=== PATIENT | male | born 1950 | race Caucasian/White ===

== ENCOUNTER 2018-12-27 16:08 | Inpatient (IN) ==
[2018-12-27] MEDS ORDERED: Aspirin 81 MG TAB.CHEW PO ONE (16:27)
--- NOTE | 2018-12-27 16:35 | Emergency Department Note ---
Disposition Clinical Impression: Weakness Chest pain Qualifiers: Chest pain type: unspecified Qualified Code(s): R07.9 - Chest pain, unspecified Headache Qualifiers: Headache type: unspecified Headache chronicity pattern: unspecified pattern Intractability: not intractable Qualified Code(s): R51 - Headache Disposition: Admitted As Inpatient Condition: Fair Time of Disposition: 22:07 Chest Pain HPI - General Chief Complaint: ED Chest Pain Stated Complaint: Chest Pain Time Seen by Provider: 12/27/18 16:26 Source: patient, family Mode of arrival: ambulatory Limitations: no limitations Vital Signs Reviewed: Yes Nursing Notes Reviewed: Yes - History of Present Illness HPI Narrative: 68-year-old man past medical history of stent placement in 2014, presenting for 2 day history of lightheadedness, dizziness, chest discomfort. Patient states he has had mild confusion and generalized malaise. Patient states that the symptoms are precisely the symptoms that he encountered prior to his previous stent placement. Severity scale (1-10): 5 Quality: tightness Pain Radiation: none - Related Data Home Medications Medication Instructions Recorded Confirmed Aspirin 81 mg PO DAILY 03/13/17 12/27/18 Clopidogrel Bisulfate [Plavix] 75 mg PO DAILY 03/13/17 12/27/18 Cyclobenzaprine HCl 10 mg PO DAILY 03/13/17 12/27/18 Gabapentin [Neurontin] 300 mg PO TID 03/13/17 12/27/18 Lisinopril [Zestril] 10 mg PO DAILY 03/13/17 12/27/18 Metoprolol Tartrate [Lopressor] 25 mg PO BID 03/13/17 12/27/18 Multivitamin [Multi-Day Vitamins] 1 each PO DAILY 03/13/17 12/27/18 OxyCODONE Immed Rel [Roxicodone 10 10 mg PO TID PRN 03/13/17 12/27/18 MG] Pioglitazone [Actos] 45 mg PO DAILY 03/13/17 12/27/18 Sildenafil Citrate [Viagra] 100 mg PO DAILY PRN 03/13/17 12/27/18 Tamsulosin HCl [Flomax] 0.4 mg PO DAILY 03/13/17 12/27/18 Zolpidem Tartrate 10 mg PO HS 03/13/17 12/27/18 Previous Rx's Medication Instructions Recorded Vitamin E (Dl,Tocopheryl Acet) 400 unit PO BID #60 cap 03/13/17 [Vitamin E] Venlafaxine XR (24 HR) [Effexor XR] 150 mg PO DAILY 30 Days #60 04/26/18 cap.er.24h Allergies Allergy/AdvReac Type Severity Reaction Status Date / Time No Known Allergies Allergy Verified 10/26/18 16:05 Review of Systems: *See History of Present Illness for more detail Constitutional: Denies: fever, chills Cardiovascular: Admits to 11/23 chest tightness without radiation Respiratory: Denies: dyspnea, cough, hemoptysis Gastrointestinal: Denies: abdominal pain, nausea, vomiting, diarrhea, constipation, hematemesis, melena, hematochezia Genitourinary: Denies: hematuria Musculoskeletal: Denies: back pain, neck pain Neurological: Denies: headache, weakness, lightheadedness/dizziness, numbness, paresthesias, difficulty with ambulation. Endocrine: Admits: fatigue All systems ED: reviewed and negative except as stated. Review of Systems: As Per HPI Chest Pain PMH - Past Medical History Medical history: Reports: diabetes, hyperlipidemia, hypertension, myocardial infarction - Social History Smoking Status: Former smoker Alcohol use: Reports: occasionally Drug use: Reports: none Physical Exam Constitutional: No acute distress, [id number], engaged to conversation, speech is fluid, answers questions appropriately Neuro: GCS 15, no overt focal neurological deficits Head: Atraumatic, normocephalic Eyes: Pupils equal, round and reactive to light, no scleral icterus, no conjunctival injection Neck: Trachea midline without deviation. Anterior neck is supple without swe lling. *Chest: Symmetric chest wall rise *Heart: Cardiac rhythm and rate are regular with S1 and S2 , no S3 or S4 appreciated, no murmurs, gallops, rubs, or clicks. *Lungs: Lungs are clear to auscultation bilaterally, without accessory muscle use or prolonged expiratory phase. No wheezes, rhonchi or stridor appreciated. Abdomen: Abdomen is flat, soft to palpation, normal bowel sounds. No abdominal bruit auscultated. Non-distended, non-rigid, no organomegaly, no ascites appreciated. No pulsatile mass, no tenderness or guarding to palpation in all four quadrants, no rebound Extremities: Normal capillary refill without evidence of pedal edema, joint swelling or erythema. Pulses/motor intact in all 4 extremities. Psychiatric exam: Patient displays a normal affect and mood for the environment. No overt signs of hallucination. Integumentary: warm, dry, intact, normal color. No rash, cyanosis, diaphoresis, erythema, or pallor - General Limitations: no limitations General appearance: alert, in no apparent distress Course Vital Signs Temperature 97.9 F 12/27/18 16:18 Pulse Rate 93 12/27/18 16:18 Respiratory Rate 16 12/27/18 16:18 Blood Pressure 157/89 12/27/18 16:18 O2 Sat by Pulse Oximetry 97 12/27/18 16:18 Temperature 97.8 F 12/28/18 02:49 Pulse Rate 67 12/28/18 02:49 Respiratory Rate 14 12/28/18 02:49 Blood Pressure 113/67 12/28/18 02:49 O2 Sat by Pulse Oximetry 99 12/28/18 02:49 Oxygen Delivery Oxygen Delivery Room Air Chest Pain - MDM Narrative Medical decision making narrative: Patient heart score is 5 Patient EKG, imaging and laboratory analysis negative for acute pathology. Patient doing well with pain management here in ED. Patient admitted to hospital medicine service for further evaluation and ACS rule out Patient family at bedside verbalized understanding and agreement with this plan. Patient hemodynamically stable time of admission - Lab Data Lab results reviewed: Yes I reviewed the patient's lab results. Result diagrams: 12/28/18 06:28 12/28/18 06:28 Lab Results 12/27/18 12/27/18 12/27/18 Range/Units 16:46 16:46 16:46 WBC 3.2 L (4.3-11.1) K/mcL RBC 4.22 (4.19-5.50) M/mcL Hgb 13.3 (12.9-16.9) g/dL Hct 40.9 (37.5-50.1) % MCV 96.9 (83.0-100.0) fL MCH 31.5 (28.0-33.3) pg MCHC 32.5 (31.6-35.5) g/dL RDW 12.8 (11.5-14.5) % Plt Count 250 (140-400) K/mcL MPV 9.7 (9.4-12.4) fL Immature Gran % 0.3 (0-4) % Seg Neutrophils % 49.9 % Lymphocytes % 35.0 % Monocytes % 10.2 % Eosinophils % 3.7 % Basophils % 0.9 % Neutrophils # 1.6 (1.6-8.9) K/mcL Lymphocytes # 1.1 (0.6-4.6) K/mcL Monocytes # 0.3 (0.0-1.3) K/mcL Eosinophils # 0.1 (0.0-0.6) K/mcL Basophils # 0.0 (0.0-0.2) K/mcL PT 11.0 (9.4-12.1) Seconds INR 1.0 APTT 30.4 (26.0-36.0) Seconds Sodium (136-145) mEq/L Potassium (3.5-5.1) mEq/L Chloride (98-107) mEq/L Carbon Dioxide (23-29) mEq/L BUN (8-23) mg/dL Creatinine (0.70-1.30) mg/dL Est GFR ( Amer) (> 60) Est GFR (Non-Af Amer) (> 60) BUN/Creatinine Ratio (6-26) Glucose (70-105) mg/dL Calculated Osmolality (280-300) Calcium (8.6-10.3) mg/dL Troponin I (< 0.04) ng/mL B-Natriuretic Peptide 50 (Less than 100) pg/mL 12/27/18 Range/Units 16:46 WBC (4.3-11.1) K/mcL RBC (4.19-5.50) M/mcL Hgb (12.9-16.9) g/dL Hct (37.5-50.1) % MCV (83.0-100.0) fL MCH (28.0-33.3) pg MCHC (31.6-35.5) g/dL RDW (11.5-14.5) % Plt Count (140-400) K/mcL MPV (9.4-12.4) fL Immature Gran % (0-4) % Seg Neutrophils % % Lymphocytes % % Monocytes % % Eosinophils % % Basophils % % Neutrophils # (1.6-8.9) K/mcL Lymphocytes # (0.6-4.6) K/mcL Monocytes # (0.0-1.3) K/mcL Eosinophils # (0.0-0.6) K/mcL Basophils # (0.0-0.2) K/mcL PT (9.4-12.1) Seconds INR APTT (26.0-36.0) Seconds Sodium 140 (136-145) mEq/L Potassium 4.2 (3.5-5.1) mEq/L Chloride 106 (98-107) mEq/L Carbon Dioxide 27 (23-29) mEq/L BUN 16 (8-23) mg/dL Creatinine 0.81 (0.70-1.30) mg/dL Est GFR ( Amer) > 60 (> 60) Est GFR (Non-Af Amer) > 60 (> 60) BUN/Creatinine Ratio 20 (6-26) Glucose 139 H (70-105) mg/dL Calculated Osmolality 293 (280-300) Calcium 9.8 (8.6-10.3) mg/dL Troponin I < 0.03 (< 0.04) ng/mL B-Natriuretic Peptide (Less than 100) pg/mL - Radiology Data Radiology results reviewed: Yes I reviewed the patient's radiology results. Chest X-Ray 12/27/18 16:27 IMPRESSION: No acute pulmonary process. D/ / Trevor Shafer MD / Trevor Shafer MD Interpreting Provider: Trevor Shafer MD Dissection 12/27/18 16:38 IMPRESSION: No evidence of dissection or acute aortic injury. Minimal atelectasis versus scar involving both lower lungs. No acute intra-abdominal/intrapelvic abnormality. D/ / Ashlyn Hunter MD / Ashlyn Hunter MD Interpreting Provider: Ashlyn Hunter MD - EKG Data EKG attestation: Yes I reviewed and interpreted this EKG. EKG results narrative: Patient's EKG shows a sinus rhythm with right bundle branch block and left anterior fascicular block with a heart of 81 bpm, [place] interval 197, QRS duration 139, QT/QTc intervals 407/473 respectively, there are no significant ST segment elevations, depressions, pathologic Q's, abnormal T-wave inversions, or any signs of acute ischemic change. This EKG performed today is generally consistent prior EKG performed on 12/19/2011. Repeat EKG shows sinus rhythm with right bundle branch block and left anterior fascicular block heart rate 75 bpm, KY interval 179 ms, QR islam 132 ms, QT/QTc intervals 40/456 ms respectively. There is dullness acute signs of ischemic change. This EKG is generally consistent with priors. Heart Score - Score History: Moderately Suspicious EKG: Normal Age: Greater than 65 Risk Factors: Equal/Greater than 3 risk factor or history of atherosclerotic disease Troponin: Less than normal limit HEART Score Total: 5 Attestation Statement - Attestation Attestation: I, Harinder Monteiro DO, examined this patient [id number] and my medical decision-making was reviewed with Dr. Flash Lyon, Resident Physician. I agree with the documented findings, disposition and treatment plan as described except to the extent set forth below. I personally supervised and was present for the marc/critical portions of the procedures completed by the resident documented below. Please see my progress notes for details.
[2018-12-27] MEDS ORDERED: Isovue-370 500 ML BOTTLE IVP ONE (16:38)
[2018-12-27 16:58] LABS: Basophils % 0.9 %; Eosinophils # 0.1 K/mcL (0.0-0.6); Eosinophils % 3.7 %; Hematocrit 40.9 % (37.5-50.1); Hemoglobin 13.3 g/dL (12.9-16.9); Immature Granulocytes % 0.3 % (0-4); Lymphocytes # 1.1 K/mcL (0.6-4.6); Mean Corpuscular HGB Conc 32.5 g/dL (31.6-35.5); Mean Corpuscular Hemoglobin 31.5 pg (28.0-33.3); Mean Corpuscular Volume 96.9 fL (83.0-100.0); Mean Platelet Volume 9.7 fL (9.4-12.4); Monocytes # 0.3 K/mcL (0.0-1.3); Monocytes % 10.2 %; Neutrophils # 1.6 K/mcL (1.6-8.9); Platelet Count 250 K/mcL (140-400); Red Blood Count 4.22 M/mcL (4.19-5.50); Red Cell Distribution Width 12.8 % (11.5-14.5); Segmented Neutrophils % 49.9 %; White Blood Count 3.2 K/mcL (4.3-11.1)
[2018-12-27 17:11] LABS: Activated Partial Thrombo Time 30.4 Seconds (26.0-36.0)
[2018-12-27 17:18] LABS: BUN/Creatinine Ratio 20 (6-26); Blood Urea Nitrogen 16 mg/dL (8-23); Calcium 9.8 mg/dL (8.6-10.3); Carbon Dioxide 27 mEq/L (23-29); Chloride 106 mEq/L (98-107); Glucose 139 mg/dL (70-105); Osmolality,Calculated 293 (280-300); Potassium 4.2 mEq/L (3.5-5.1); Sodium 140 mEq/L (136-145); eGFR For African Americans > 60 (> 60); eGFR For Non-African Americans > 60 (> 60)
[2018-12-27 17:19] LABS: Troponin I < 0.03 ng/mL (< 0.04)
[2018-12-27] MEDS: Nitroglycerin 0.4 MG TAB.SUBL SL PRN ×3 (17:25→17:35)
[2018-12-27] MEDS ORDERED: *HR* Morphine 2 MG/ML SYRINGE IVP ONE (17:44)
--- NOTE | 2018-12-27 18:13 | Emergency Department Note ---
Disposition Clinical Impression: Weakness Chest pain Qualifiers: Chest pain type: unspecified Qualified Code(s): R07.9 - Chest pain, unspecified Headache Qualifiers: Headache type: unspecified Headache chronicity pattern: unspecified pattern Intractability: not intractable Qualified Code(s): R51 - Headache Disposition: Admitted As Inpatient Condition: Fair Referrals: Carlos Lauren MD [Primary Care Provider] - Forms: ED Satisfaction Letter Time of Disposition: 20:28 General Adult HPI - General Chief complaint: ED Chest Pain Stated complaint: Chest Pain Time Seen by Provider: 12/27/18 16:26 Source: patient, family Limitations: no limitations - History of Present Illness Pain Scale: 5 - Related Data Home Medications Medication Instructions Recorded Confirmed Aspirin 81 mg PO DAILY 03/13/17 10/26/18 Clopidogrel Bisulfate [Plavix] 75 mg PO DAILY 03/13/17 10/26/18 Cyclobenzaprine HCl 10 mg PO DAILY 03/13/17 10/26/18 Gabapentin [Neurontin] 300 mg PO TID 03/13/17 10/26/18 Lisinopril [Zestril] 10 mg PO DAILY 03/13/17 10/26/18 Metoprolol Tartrate [Lopressor] 25 mg PO BID 03/13/17 10/26/18 Multivitamin [Multi-Day Vitamins] 1 each PO DAILY 03/13/17 10/26/18 OxyCODONE Immed Rel [Roxicodone 10 10 mg PO TID PRN 03/13/17 10/26/18 MG] Pioglitazone [Actos] 45 mg PO DAILY 03/13/17 10/26/18 Sildenafil Citrate [Viagra] 100 mg PO DAILY PRN 03/13/17 10/26/18 Tamsulosin HCl [Flomax] 0.4 mg PO DAILY 03/13/17 10/26/18 Zolpidem Tartrate 10 mg PO HS 03/13/17 10/26/18 Previous Rx's Medication Instructions Recorded Vitamin E (Dl,Tocopheryl Acet) 400 unit PO BID #60 cap 03/13/17 [Vitamin E] Venlafaxine XR (24 HR) [Effexor XR] 150 mg PO DAILY 30 Days #60 04/26/18 cap.er.24h Allergies Allergy/AdvReac Type Severity Reaction Status Date / Time No Known Allergies Allergy Verified 10/26/18 16:05 Past Medical History - Past Medical History Medical history: Reports: diabetes, hyperlipidemia, hypertension, myocardial infarction - Social History Smoking Status: Former smoker Smokeless Tobacco Status: No Alcohol use: Reports: occasionally Drug use: Reports: none Physical Exam - General Limitations: no limitations General appearance: alert, in no apparent distress Course Vital Signs Temperature 97.9 F 12/27/18 16:18 Pulse Rate 93 12/27/18 16:18 Respiratory Rate 16 12/27/18 16:18 Blood Pressure 157/89 12/27/18 16:18 O2 Sat by Pulse Oximetry 97 12/27/18 16:18 Temperature 97.9 F 12/27/18 16:18 Pulse Rate 21 12/27/18 19:35 Respiratory Rate 18 12/27/18 19:35 Blood Pressure 123/80 12/27/18 19:35 O2 Sat by Pulse Oximetry 98 12/27/18 19:35 Oxygen Delivery Oxygen Delivery Room Air Medical Decision Making - Lab Data Result diagrams: 12/27/18 16:46 12/27/18 16:46 Lab Results 12/27/18 12/27/18 12/27/18 Range/Units 16:46 16:46 16:46 WBC 3.2 L (4.3-11.1) K/mcL RBC 4.22 (4.19-5.50) M/mcL Hgb 13.3 (12.9-16.9) g/dL Hct 40.9 (37.5-50.1) % MCV 96.9 (83.0-100.0) fL MCH 31.5 (28.0-33.3) pg MCHC 32.5 (31.6-35.5) g/dL RDW 12.8 (11.5-14.5) % Plt Count 250 (140-400) K/mcL MPV 9.7 (9.4-12.4) fL Immature Gran % 0.3 (0-4) % Seg Neutrophils % 49.9 % Lymphocytes % 35.0 % Monocytes % 10.2 % Eosinophils % 3.7 % Basophils % 0.9 % Neutrophils # 1.6 (1.6-8.9) K/mcL Lymphocytes # 1.1 (0.6-4.6) K/mcL Monocytes # 0.3 (0.0-1.3) K/mcL Eosinophils # 0.1 (0.0-0.6) K/mcL Basophils # 0.0 (0.0-0.2) K/mcL PT 11.0 (9.4-12.1) Seconds INR 1.0 APTT 30.4 (26.0-36.0) Seconds Sodium (136-145) mEq/L Potassium (3.5-5.1) mEq/L Chloride (98-107) mEq/L Carbon Dioxide (23-29) mEq/L BUN (8-23) mg/dL Creatinine (0.70-1.30) mg/dL Est GFR ( Amer) (> 60) Est GFR (Non-Af Amer) (> 60) BUN/Creatinine Ratio (6-26) Glucose (70-105) mg/dL Calculated Osmolality (280-300) Calcium (8.6-10.3) mg/dL Troponin I (< 0.04) ng/mL B-Natriuretic Peptide 50 (Less than 100) pg/mL 12/27/18 Range/Units 16:46 WBC (4.3-11.1) K/mcL RBC (4.19-5.50) M/mcL Hgb (12.9-16.9) g/dL Hct (37.5-50.1) % MCV (83.0-100.0) fL MCH (28.0-33.3) pg MCHC (31.6-35.5) g/dL RDW (11.5-14.5) % Plt Count (140-400) K/mcL MPV (9.4-12.4) fL Immature Gran % (0-4) % Seg Neutrophils % % Lymphocytes % % Monocytes % % Eosinophils % % Basophils % % Neutrophils # (1.6-8.9) K/mcL Lymphocytes # (0.6-4.6) K/mcL Monocytes # (0.0-1.3) K/mcL Eosinophils # (0.0-0.6) K/mcL Basophils # (0.0-0.2) K/mcL PT (9.4-12.1) Seconds INR APTT (26.0-36.0) Seconds Sodium 140 (136-145) mEq/L Potassium 4.2 (3.5-5.1) mEq/L Chloride 106 (98-107) mEq/L Carbon Dioxide 27 (23-29) mEq/L BUN 16 (8-23) mg/dL Creatinine 0.81 (0.70-1.30) mg/dL Est GFR ( Amer) > 60 (> 60) Est GFR (Non-Af Amer) > 60 (> 60) BUN/Creatinine Ratio 20 (6-26) Glucose 139 H (70-105) mg/dL Calculated Osmolality 293 (280-300) Calcium 9.8 (8.6-10.3) mg/dL Troponin I < 0.03 (< 0.04) ng/mL B-Natriuretic Peptide (Less than 100) pg/mL Attestation Statement - Attestation Attestation: I, Harinder Monteiro DO, examined this patient [id number] and my medical dec ision-making was reviewed with Dr. Flash Lyon, Resident Physician. I agree with the documented findings, disposition and treatment plan as described except to the extent set forth below. I personally supervised and was present for the marc/critical portions of the procedures completed by the resident documented below. Please see my progress notes for details. 68-year-old male presents emergency room with 3 days worth of tightness to his chest lightheaded sensation and pain that radiates into his back. He denies any falls trauma or injury. Denies any headache or vision change. He has not had any nausea vomiting or diarrhea. Denies any specific shortness of breath. He does have a remote history of similar symptoms in the past when he had actual myocardial related ischemia and damage. Vital signs reviewed and are stable on presentation. Patient is alert he is oriented he is answering questions. He has normal vision on exam. His head is atraumatic. Pupils are equal round reactive. Extraocular muscles are intact. Oropharynx is patent. Trachea is midline. Lungs are clear to auscultation. Heart is regular. Abdomen is soft nontender nondistended with no pulsatile masses or lesions. Extremities otherwise normal with no signs of rash or abrasion or swelling. Patient is describing pain in the anterior chest wall raised his back. Initial EKG does not show any acute findings or changes. Morphology is compared reviewed from previous shows identical similarities. This was reviewed by myself and documented resident physician's note. Patient is concerning for the described symptoms being secondary to cardiac related etiology. Patient also has a history of aortic stenosis is seen as described. Because of the pain radiated into his back and immediate CT angiography the chest abdomen and pelvis were ordered ruling out dissection. Patient will be provided with nitroglycerin aspirin and the pain medication as needed. Disposition will most likely be admission wants a full workup and treatment course have been established. Patient is otherwise stable. See detailed documentation the physical exam, medical intervention, medical decision-making and disposition in the resident physician's note. No critical care applied the patient's treatment course at this time [address] angiography the chest abdomen and pelvis at this time. Patient had still had pain after 3 nitroglycerin were given with no significant relief. Pain medication as been ordered at this point. Repeat EKG was ordered as well and shows no changes. Initial troponin was negative and the patient's had the symptoms for 3 days. Admission process to be established considering the patient's described history and symptoms. We will continue monitor his symptoms are controlled admission process is completed. 2034 Patient feels much better after the second dose of pain medication. His symptoms are not gone but otherwise has had no acute changes. He did not have any response to nitroglycerin. Troponin is negative and EKG was otherwise unremarkable. Patient will be admitted for symptomatic control management. He will monitor closely and determine whether or not he needs further intervention here in the hospital setting. The hospitalist Dr. Espinoza had reviewed the case and no other concerns or issues at this point. Patient will be monitored here closely in the emergency department until the admission process is completed.
[2018-12-27] MEDS ORDERED: *HR* HYDROmorphone (PF) 1 MG/ML SYRINGE IVP ONE (19:12)
[2018-12-27] MEDS ORDERED: Naloxone 0.4 MG/ML INJ IVP PRN (21:06)
--- NOTE | 2018-12-27 21:28 | Internal Med History&Physical ---
Date of Encounter: 12/27/18 Time of Encounter: 20:52 Internal Medicine - H&P: HPI Chief complaint: Chest pain Admitted From: Emergency Dept Plans for Post Hospital Care: Home History of present illness: Mr. Burt is a 68 year old male Patient presented to the emergency room with three-day history of worsening chest pain. 3 days ago patient was out in the yard working on his lawnmower when he began having chest discomfort, nausea and vomiting. He also became progressively weak over the last few days as well. His significant history of OR with stent placement about 13 years ago. He follows with cardiology, Dr. Amor. With his previous OR he waited 2 weeks before coming into the hospital with chest pain. His was at bedside convinced him to come in as been having the pain for 3 days. Chest pain radiates to left arm as well as to his back. indicates that he has not been acting like himself. In the emergency room patient's initial vital signs were with CBC: Notable for white count of 3.2 BMP: Notable for glucose of 139 Initial troponin undetectable BNP 50 Chest x-ray no acute process CT dissection study: No evidence of dissection or acute aortic injury. EKG: Normal sinus rhythm with right bundle branch block QTC of 473. No ST elevations or ischemic change. Patient was given 3 doses of nitroglycerin, morphine as well as Dilaudid. Patient received 324 mg of aspirin. His symptoms improved, and he is admitted to the hospital for further management. Upon my evaluation, patient is resting comfortably in the emergency room bed. He is in no acute distress. He states that he has some mild chest discomfort and his headache worsened after the nitroglycerin. He denies abdominal pain, nausea, vomiting, diarrhea and constipation. He has significant family history of heart attacks, stating his father passed with a heart attack at 52 his grandfather from heart attack while he was in his 30s and his brother passed went from a heart attack at age of 47. Patient has past medical history of prostate cancer not currently undergoing chemotherapy or radiation, diabetes, hypertension and hyperlipidemia as well. He is a full code. Past Med Surg Social Fam HX - Past Medical History Medical history: diabetes, hyperlipidemia, hypertension, myocardial infarction - Past Surgical History Additional surgical history: Neck Surgery - Social History Smoking Status: Former smoker Smokeless Tobacco Status: No Alcohol use: occasionally Drug use: none Internal Medicine - H&P: Meds Aspirin 81 mg PO DAILY 03/13/17 [History] Clopidogrel Bisulfate [Plavix] 75 mg PO DAILY 03/13/17 [History] Cyclobenzaprine HCl 10 mg PO DAILY 03/13/17 [History] Gabapentin [Neurontin] 300 mg PO TID 03/13/17 [History] Lisinopril [Zestril] 10 mg PO DAILY 03/13/17 [History] Metoprolol Tartrate [Lopressor] 25 mg PO BID 03/13/17 [History] Multivitamin [Multi-Day Vitamins] 1 each PO DAILY 03/13/17 [History] OxyCODONE Immed Rel [Roxicodone 10 MG] 10 mg PO TID PRN 03/13/17 [History] Pioglitazone [Actos] 45 mg PO DAILY 03/13/17 [History] Sildenafil Citrate [Viagra] 100 mg PO DAILY PRN 03/13/17 [History] Tamsulosin HCl [Flomax] 0.4 mg PO DAILY 03/13/17 [History] Vitamin E (Dl,Tocopheryl Acet) [Vitamin E] 400 unit PO BID #60 cap 03/13/17 [Rx] Zolpidem Tartrate 10 mg PO HS 03/13/17 [History] Venlafaxine XR (24 HR) [Effexor XR] 150 mg PO DAILY 30 Days #60 cap.er.24h 04/26/18 [Rx] Allergy/AdvReac Type Severity Reaction Status Date / Time No Known Allergies Allergy Verified 10/26/18 16:05 All Systems PM: A 10-system review of systems was performed and is negative for pertinent findings except as documented above in the HPI. - Constitutional Vitals: Temp Pulse Resp BP Pulse Ox 97.9 F 73 15 131/78 96 12/27/18 16:18 12/27/18 20:44 12/27/18 20:44 12/27/18 20:44 12/27/18 20:44 General appearance: Present: cooperative, A&O X 3, pleasant, no acute distress, answers questions appropriately Exam: - - Head Head exam: Present: normal inspection - Eye Eye exam: Present: EOMI, normal appearance - Respiratory Respiratory exam: Present: CTAB. Absent: rales, respiratory distress, rhonchi, wheezes - Cardiovascular Cardiovascular exam: Present: RRR. Absent: diastolic murmur, systolic murmur - GI/Abdominal GI/Abdominal exam: Present: normal bowel sounds, soft. Absent: tenderness - Extremities Exam Extremities exam: Present: warm, radial pulses palpable and symmetrical. Absent: calf tenderness, pedal edema, tenderness - Neurological Exam Neurological exam: Present: no focal deficits, strengths equal and symetr throughout. Absent: motor sensory deficit, facial droop, speech deficit - Skin Skin exam: Present: dry, normal color, warm Internal Med - H&P Results - Labs CBC & Chem 7: 12/27/18 16:46 12/27/18 16:46 Labs: Short CBC 12/27/18 Range/Units 16:46 WBC 3.2 L (4.3-11.1) K/mcL Hgb 13.3 (12.9-16.9) g/dL Hct 40.9 (37.5-50.1) % Plt Count 250 (140-400) K/mcL Neutrophils # 1.6 (1.6-8.9) K/mcL BMP 12/27/18 16:46 Sodium 140 Potassium 4.2 Chloride 106 Carbon Dioxide 27 BUN 16 Creatinine 0.81 Glucose 139 H Calcium 9.8 Cardiac Enzymes 12/27/18 Range/Units 16:46 Troponin I < 0.03 (< 0.04) ng/mL - Impressions ITS Impressions Chest X-Ray 12/27/18 16:27 IMPRESSION: No acute pulmonary process. D/ / Trevor Shafer MD / Trevor Shafer MD Interpreting Provider: Trevor Shafer MD Dissection 12/27/18 16:38 IMPRESSION: No evidence of dissection or acute aortic injury. Minimal atelectasis versus scar involving both lower lungs. No acute intra-abdominal/intrapelvic abnormality. D/ / Ashlyn Hunter MD / Ashlyn Hunter MD Interpreting Provider: Ashlyn Hunter MD - Assessment and Plan (1) Chest pain Current Visit: Yes Status: Acute Assessment and plan: Chest pain improved from initial presentation. Troponin was not elevated, EKG nonischemic. Patient has significant family history as well as personal history of heart disease. Continue to trend troponin shelter monitor Echocardiogram in the morning Stress test in the morning Morphine for pain when necessary Qualifiers: Chest pain type: unspecified Qualified Code(s): R07.9 - Chest pain, unspecified (2) Diabetes Current Visit: Yes Status: Acute Assessment and plan: Patient is not an insulin dependent diabetic Monitor sugars every 6 hours Diabetic diet, nothing by mouth after midnight Low dose insulin sliding scale as needed Hold home meds. Qualifiers: Diabetes mellitus type: type 2 Diabetes mellitus alf insulin use: without alf use Diabetes mellitus complication status: with hyperglycemi a Qualified Code(s): E11.65 - Type 2 diabetes mellitus with hyperglycemia (3) Headache Current Visit: Yes Status: Acute Assessment and plan: Worsened with nitroglycerin. Tylenol for pain Qualifiers: Headache type: unspecified Headache chronicity pattern: unspecified pattern Intractability: not intractable Qualified Code(s): R51 - Headache (4) Prostate cancer Current Visit: No Status: Chronic Assessment and plan: Patient not undergoing treatment. Management outpatient with oncology (5) DVT prophylaxis Current Visit: Yes Status: Acute Assessment and plan: Subcutaneous heparin - Time Spent With Patient Total time spent is greater than 50% in coordination of care (as documented) at patient's floor/unit and/or counseling patient: Greater than 35 minutes
[2018-12-27] MEDS ORDERED: Dextrose Gel 15 GM/37.5 ML TUBE PO PRN ×2 (21:37)
[2018-12-27] MEDS ORDERED: *HR* Dextrose 50 % in Water (Syg) 50 ML SYRINGE IVP PRN (21:37)
[2018-12-27] MEDS ORDERED: D5% in Water 1,000 ML IVC PRN (21:37)
[2018-12-27] MEDS: Insulin LISPRO 300 UNITS/3 ML VIAL SQ SCH (23:25)
[2018-12-27] MEDS: *HR* Morphine 2 MG/ML SYRINGE IVP PRN (23:43)
[2018-12-28] MEDS: *HR* Morphine 2 MG/ML SYRINGE IVP PRN ×2 (03:21→20:13)
[2018-12-28] MEDS: Insulin LISPRO 300 UNITS/3 ML VIAL SQ SCH ×4 (05:53→20:28)
[2018-12-28] MEDS: *HR* Heparin 5,000 UNIT/ML VIAL SQ SCH ×2 (05:53→17:35)
[2018-12-28] MEDS ORDERED: Regadenoson 0.4 MG/5 ML SYRINGE IVP ONE (06:24)
[2018-12-28 06:46] LABS: Hematocrit 38.7 % (37.5-50.1); Hemoglobin 12.4 g/dL (12.9-16.9); Mean Corpuscular Hemoglobin 31.3 pg (28.0-33.3); Mean Corpuscular Volume 97.7 fL (83.0-100.0); Mean Platelet Volume 9.7 fL (9.4-12.4); Platelet Count 225 K/mcL (140-400); Red Blood Count 3.96 M/mcL (4.19-5.50); Red Cell Distribution Width 12.9 % (11.5-14.5); White Blood Count 2.9 K/mcL (4.3-11.1)
[2018-12-28 07:08] LABS: BUN/Creatinine Ratio 21 (6-26); Blood Urea Nitrogen 17 mg/dL (8-23); Carbon Dioxide 28 mEq/L (23-29); Chloride 108 mEq/L (98-107); Chol/HDL Ratio 4.1 (0-4.9); Cholesterol 185 mg/dL (< 200); Glucose 137 mg/dL (70-105); HDL Cholesterol 45 mg/dL (40-59); LDL Cholesterol,Calculated 102 mg/dL (0-99); Osmolality,Calculated 298 (280-300); Potassium 4.2 mEq/L (3.5-5.1); Sodium 142 mEq/L (136-145); Triglycerides 192 mg/dL (< 150); eGFR For African Americans > 60 (> 60); eGFR For Non-African Americans > 60 (> 60)
[2018-12-28] MEDS: Nitroglycerin 0.4 MG TAB.SUBL SL PRN ×2 (10:18→10:31)
[2018-12-28] MEDS: Aspirin 81 MG TAB.CHEW PO SCH (10:18)
[2018-12-28] MEDS: Acetaminophen 325 MG TABLET PO PRN (10:35)
--- NOTE | 2018-12-28 13:11 | Cardiology Consult Note ---
<Milady Chow N - Last Filed: 12/28/18 14:36> Date of Encounter: 12/28/18 Time of Encounter: 13:10 Assessment and Plan (1) Chest pain Current Visit: Yes Status: Acute Patient reports improvement of his symptoms at this time, but voices that he is still intermittently having chest tightness. He has had negative troponin x3, and EKG shows no ischemic changes. Chest imaging performed in the ED was negative for acute abnormalities. Pharmacologic stress test on 12/28/2018 was negative for ischemia at the level of heart rate acheived, and perfusion imaging was negative for definite ischemia or infarct. Gated EF = 58%. Patient noted to have chest tightness with stress test. At this time, etiology is unclear; possibilities include coronary vasospasm vs. BP fluctuations vs. dislodgment of plaque that has since resolved. Recommendations: - Increase metoprolol from 25mg BID to 50mg BID. - Start imdur 15mg daily. Patient will need to refrain from use of sildenafil while on this medication. If he is able to tolerate imdur, anticipate increasing dose to 30mg daily. - Echocardiogram pending. - At this time, no indication for LHC or further ischemic workup. If echocardiogram is abnormal and/or patient continues to have chest tightness/pain despite these medication changes, may consider LHC after the weekend. Patient instructed to ask for immediate BP check when symptoms recur. Qualifiers: Chest pain type: unspecified Qualified Code(s): R07.9 - Chest pain, unspecified (2) CAD (coronary artery disease) Current Visit: Yes Status: Acute History of CAD s/p RCA stent in 2005. Continue aspirin, plavix, and metoprolol. Qualifiers: Coronary Disease-Associated Artery/Lesion type: [place] artery [place] vs. transplanted heart: [place] heart Associated angina: angina presence unspecified Qualified Code(s): I25.10 - Atherosclerotic heart disease of [place] coronary artery without angina pectoris Discussion w patient/family: The assessment and plan as outlined above was discussed with the patient and/or family members who expressed understanding and agreement. All questions were answered. Thank you for involving us in the care of your patient. Please call with any questions. History of Present Illness Consult date: 12/28/18 Requesting physician: Johan Chicas Consult reason: Worsening angina, negative stress test Chief complaint: Chest pain History of present illness: Mr. Burt is a 68 year old male with a history of CAD s/p RCA stent in 2005, HTN, HLD, DM, and prostate cancer. He presented to the ED for evaluation of chest tightness, shortness of breath, dizziness, headache, and general malaise lasting for several days. He reported that the symptoms started approximately 3 days previously, and were nearly identical to those he experienced in the past prior to receiving his stent. Patient reports good functional status and no worsening symptoms prior to 3 days ago. Results of ED workup revealed negative troponins x3, and EKG showed no acute changes from prior. CXR showed no acute process. CTA demonstrated no evidence of dissection or acute aortic injury, though minimal atelectasis versus scar was noted involving bilateral lower lungs. Patient was administered nitroglycerin in the ED, which minimally improved his symptoms, though his headache worsened and his chest discomfort returned. Cardiology consult placed for recommendations regarding patient's chest pain. Previous cardiac testing/interventions: * Echocardiogram 12/19/2011: LVEF 60%. LV mitral inflow and tissue grade 1 diastolic dysfunction. Mildly dilated left and right atria. Mild mitral and tricuspid regurgitation. * LHC 12/20/2011: 40% tubular ostial stenosis in the proximal left main coronary artery. Patent pre-existing stent in proximal right coronary artery. Minimal atherosclerotic CAD. LVEF 60%. * Stress test 02/09/2016: NSR with RBBB at baseline. Stress ECG negative for ischemia. Exercise capacity was good. Normal hemodynamic response to exercise. No arrhythmias noted with stress. Patient had no chest pain with stress. * Carotid Duplex 02/23/2016: Bilateral nonstenotic carotid plaques. Past Med Surg Social Fam HX - Past Medical History Medical history: diabetes, hyperlipidemia, hypertension, myocardial infarction - Past Surgical History Additional surgical history: Neck Surgery - Social History Smoking Status: Former smoker Smokeless Tobacco Status: No Alcohol use: occasionally Drug use: none - Family History Father Living Status: Cause of : mi Hx Family Cardiac Disorders: Yes ([place]) Mother Living Status: Medications and Allergies Aspirin 81 mg PO DAILY 03/13/17 [History] Clopidogrel Bisulfate [Plavix] 75 mg PO DAILY 03/13/17 [History] Cyclobenzaprine HCl 10 mg PO DAILY 03/13/17 [History] Gabapentin [Neurontin] 300 mg PO TID 03/13/17 [History] Lisinopril [Zestril] 10 mg PO DAILY 03/13/17 [History] Metoprolol Tartrate [Lopressor] 25 mg PO BID 03/13/17 [History] Multivitamin [Multi-Day Vitamins] 1 each PO DAILY 03/13/17 [History] OxyCODONE Immed Rel [Roxicodone 10 MG] 10 mg PO TID PRN 03/13/17 [History] Pioglitazone [Actos] 45 mg PO DAILY 03/13/17 [History] Sildenafil Citrate [Viagra] 100 mg PO DAILY PRN 03/13/17 [History] Tamsulosin HCl [Flomax] 0.4 mg PO DAILY 03/13/17 [History] Vitamin E (Dl,Tocopheryl Acet) [Vitamin E] 400 unit PO BID #60 cap 03/13/17 [Rx] Zolpidem Tartrate 10 mg PO HS 03/13/17 [History] Venlafaxine XR (24 HR) [Effexor XR] 150 mg PO DAILY 30 Days #60 cap.er.24h 04/26/18 [Rx] Allergy/AdvReac Type Severity Reaction Status Date / Time No Known Allergies Allergy Verified 10/26/18 16:05 All Systems Review: The remainder of the systems were reviewed and are negative - Constitutional Constitutional: fatigue, headache(s) Physical Examination Vital Signs, Last 4 Hours Temp Pulse Resp BP Pulse Ox 12/28/18 11:22 97.5 F L 64 16 116/73 97 12/28/18 10:35 71 136/83 12/28/18 10:26 75 142/81 12/28/18 10:15 99 Other: GENERAL: Well-developed, well-nourished adult male sitting in bed in no acute distress. HEENT: Atraumatic and normocephalic. CARDIOVASCULAR: Regular rate and rhythm. S1 and S2 present. No murmurs, gallops, or rubs. RESPIRATORY: Clear to auscultation bilaterally. Chest rises and falls symmetrically with respiration. No accessory muscle use noted. GASTROINTESTINAL: Abdomen is soft and nondistended. EXTREMITIES: No clubbing, cyanosis, or edema present. SKIN: Warm, dry, and intact. No rashes or discoloration visualized. NEUROLOGIC: Alert and oriented x3. Patient is cooperative with exam and answers questions appropriately. No apparent focal deficits. Results 12/28/18 06:28 12/28/18 06:28 Lab Results 12/27/18 12/27/18 12/27/18 16:46 16:46 16:46 WBC 3.2 L Hgb 13.3 Hct 40.9 Plt Count 250 INR 1.0 APTT 30.4 Sodium Potassium Chloride Carbon Dioxide BUN Creatinine Glucose Calcium Troponin I B-Natriuretic Peptide 50 12/27/18 12/27/18 12/28/18 16:46 22:45 06:28 WBC 2.9 L Hgb 12.4 L Hct 38.7 Plt Count 225 INR APTT Sodium 140 Potassium 4.2 Chloride 106 Carbon Dioxide 27 BUN 16 Creatinine 0.81 Glucose 139 H Calcium 9.8 Troponin I < 0.03 < 0.03 B-Natriuretic Peptide 12/28/18 12/28/18 06:28 06:28 WBC Hgb Hct Plt Count INR APTT Sodium 142 Potassium 4.2 Chloride 108 H Carbon Dioxide 28 BUN 17 Creatinine 0.80 Glucose 137 H Calcium 9.0 Troponin I < 0.03 B-Natriuretic Peptide Consult Discharge Plan - Plan Referrals: Carlos Lauren MD [Primary Care Provider] - <Sky Belle - Last Filed: 12/28/18 16:05> Date of Encounter: 12/28/18 - Attending Attestation Patient was seen and evaluated independently by me. Findings, assessment and plan were discussed at length with patient, questions answered. Agree with nurse practitioner's/resident's documentation. Addition as follows, Ho CAD on DAPT RCA stent 2005, [facility] 2011 40% LM, borderline PV stenosis, RBBB, HTN, DM2, HLD, prostate Ca, OA on opioid, viagra use, ex-smoker C/o 5 days of intermittent headache, general chest tightness and dyspnea with mild exertion an at rest, which feels similar to prior angina. ECG no ischemic changes, old RBBB, neg Trop, nl BNP. chest CTA no evience of Ao dissection or PE, Minimal atelectasis versus scar involving both lower lungs. Pharm SPECT no ischemia or infarct, EF 58%. WBC 3, no BROOKE Prior testing Echo 20140812 EF 65%, mild diastolic dysfunction, RV dilatation normal function, borderline pulmonic stenosis PG 22 Stress EKG [id number] unremarkable, 10 mets C [id number] LM 40% tubular ostial, LAD 20%, LCX 20%, RCA patent stent. Carotid duplex [id number] bilateral nonstenotic plaques. A: Chest pain, atypical and typical, no ischemia on SPECT, but clinically cannot rule out angina CAD on DAPT, no chest pain till 5 days ago (ho RCA stent, LM 40% 2011) Ho mild pumonic stenosis HTN, BP mild fluctuation P: pending TTE for EF, WMA and re-eval for pulmonary stenosis up metoprolol to 50 bid trial of imdur 15 avoid viagra/cialis c/w DAPT Sky Belle MD, PhD Assessment and Plan Discussion w patient/family: The assessment and plan as outlined above was discussed with the patient and/or family members who expressed understanding and agreement. All questions were answered. Thank you for involving us in the care of your patient. Please call with any questions. History of Present Illness History of present illness: Mr. Burt is a 68 year old male All Systems Review: The remainder of the systems were reviewed and are negative Physical Examination Vital Signs, Last 4 Hours Temp Pulse Resp BP Pulse Ox 12/28/18 14:50 97.8 F 76 16 131/83 95 Results 12/28/18 06:28 12/28/18 06:28 Lab Results 12/27/18 12/27/18 12/27/18 16:46 16:46 16:46 WBC 3.2 L Hgb 13.3 Hct 40.9 Plt Count 250 INR 1.0 APTT 30.4 Sodium Potassium Chloride Carbon Dioxide BUN Creatinine Glucose Calcium Troponin I B-Natriuretic Peptide 50 12/27/18 12/27/18 12/28/18 16:46 22:45 06:28 WBC 2.9 L Hgb 12.4 L Hct 38.7 Plt Count 225 INR APTT Sodium 140 Potassium 4.2 Chloride 106 Carbon Dioxide 27 BUN 16 Creatinine 0.81 Glucose 139 H Calcium 9.8 Troponin I < 0.03 < 0.03 B-Natriuretic Peptide 12/28/18 12/28/18 06:28 06:28 WBC Hgb Hct Plt Count INR APTT Sodium 142 Potassium 4.2 Chloride 108 H Carbon Dioxide 28 BUN 17 Creatinine 0.80 Glucose 137 H Calcium 9.0 Troponin I < 0.03 B-Natriuretic Peptide
--- NOTE | 2018-12-28 15:08 | Internal Med Progress Note ---
Hospitalist Progress Note - Encounter Date of Encounter: 12/28/18 Time of Encounter: 15:04 - Subjective Interval History: Mr. Burt is a 68 y/o M with known past medical history of hypertension, hyperlipidemia, CAD status post PCI who follows with cardiology Dr. Amor, now he presented to ER plastid complaining about intermittent chest pain since Monday. Patient stated his chest pain located sub sternal and left chest wall region radiating to his left shoulder. His chest pain 6 out of 10 in severity and more like sharp/pressure type Pain. In the ER his initial troponin was negative. EKG did not show any acute ischemic changes. He was admitted in the hospital placed him on nuclear monitoring technician. His his serial troponin came back as negative. Patient still complaining about intermittent chest pain. This morning after stress test he developed similar chest pain which relieved with nitro. However he complained about headache after taking Nitro - Exam Vitals: Temp Pulse Resp BP Pulse Ox 97.8 F 76 16 131/83 95 12/28/18 14:50 12/28/18 14:50 12/28/18 14:50 12/28/18 14:50 12/28/18 14:50 Exam: Gen: Alert, awake, Oriented to time,place and person Chest: Diminished breath sounds B/L, No wheezing, No crackles, No rales Heart: S1S2+ RRR No murmurs Abd: Soft, NT, BS +, No organomegaly Ext: No edema, pulses are palpable, No calf tenderness Neuro : No acute focal neuro deficits noticed Skin: No rash. - Assessment and Plan (1) Chest pain Current Visit: Yes Status: Acute Assessment and Plan: Serial trop x 3 negative EKG - did not show any acute ischemic changes Echocardiogram - P His stress test came back as negative for ischemia / infarction.. No perfusion defects noticed since patient does have typical angina equivalent chest pain, I did consult Cardiology for further eval Card recommend to inc his Metoprolol Unable to start him on Imdur due to headaches (2) Headache Current Visit: Yes Status: Acute Assessment and Plan: Worsened with nitroglycerin. Tylenol for pain (3) Prostate cancer Current Visit: No Status: Chronic Assessment and Plan: Patient not undergoing treatment. Management outpatient with oncology (4) Diabetes Current Visit: Yes Status: Acute Assessment and Plan: ADA diet on ISS (5) DVT prophylaxis Current Visit: Yes Status: Acute Assessment and Plan: Subcutaneous heparin (6) HLD (hyperlipidemia) Current Visit: Yes Status: Acute Assessment and Plan: Reviewed FLP -- LDL @ 102 Will start him on low dose Lipitor - Time Spent with Patient Total time spent is greater than 50% in coordination of care (as documented) at patient's floor/unit and/or counseling patient: Internal Medicine: Result - Labs CBC & Chem 7: 12/28/18 06:28 12/28/18 06:28 Labs: Short CBC 12/27/18 12/28/18 Range/Units 16:46 06:28 WBC 3.2 L 2.9 L (4.3-11.1) K/mcL Hgb 13.3 12.4 L (12.9-16.9) g/dL Hct 40.9 38.7 (37.5-50.1) % Plt Count 250 225 (140-400) K/mcL Neutrophils # 1.6 (1.6-8.9) K/mcL BMP 12/27/18 12/28/18 16:46 06:28 Sodium 140 142 Potassium 4.2 4.2 Chloride 106 108 H Carbon Dioxide 27 28 BUN 16 17 Creatinine 0.81 0.80 Glucose 139 H 137 H Calcium 9.8 9.0 Cardiac Enzymes 12/27/18 12/27/18 12/28/18 Range/Units 16:46 22:45 06:28 Troponin I < 0.03 < 0.03 < 0.03 (< 0.04) ng/mL - ABG Interpretation ABG results: PT/INR, D-dimer PT 11.0 Seconds (9.4-12.1) 12/27/18 16:46 - Impressions Impressions Chest X-Ray 12/27/18 16:27 IMPRESSION: No acute pulmonary process. D/ / Trevor Shafer MD / Trevor Shafer MD Interpreting Provider: Trevor Shafer MD Dissection 12/27/18 16:38 IMPRESSION: No evidence of dissection or acute aortic injury. Minimal atelectasis versus scar involving both lower lungs. No acute intra-abdominal/intrapelvic abnormality. D/ / Ashlyn Hunter MD / Ashlyn Hunter MD Interpreting Provider: Ashlyn Hunter MD Consult Discharge Plan - Plan Referrals: Carlos Lauren MD [Primary Care Provider] - (1) Chest pain Qualifiers: Chest pain type: unspecified Qualified Code(s): R07.9 - Chest pain, unspecified (2) Headache Qualifiers: Headache type: unspecified Headache chronicity pattern: unspecified pattern Intractability: not intractable Qualified Code(s): R51 - Headache (4) Diabetes Qualifiers: Diabetes mellitus type: type 2 Diabetes mellitus ad terminal makeup operator insulin use: without ad terminal makeup operator use Diabetes mellitus complication status: with hyperglycemia Qualified Code(s): E11.65 - Type 2 diabetes mellitus with hyperglycemia (6) HLD (hyperlipidemia) Qualifiers: Hyperlipidemia type: unspecified Qualified Code(s): E78.5 - Hyperlipidemia, unspecified
[2018-12-28] MEDS: Isosorbide MONOnitrate (24 HR) 30 MG TAB.ER.24H PO SCH (15:50)
--- NOTE | 2018-12-28 16:51 | Electrocardiograph Report ---
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
--- NOTE | 2018-12-28 16:53 | Electrocardiograph Report ---
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
--- NOTE | 2018-12-28 17:01 | Electrocardiograph Report ---
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
[2018-12-28] MEDS ORDERED: Ondansetron 4 MG/2 ML VIAL IVP PRN (19:47)
[2018-12-29] MEDS: *HR* Heparin 5,000 UNIT/ML VIAL SQ SCH ×2 (06:17→17:44)
[2018-12-29] MEDS: Insulin LISPRO 300 UNITS/3 ML VIAL SQ SCH ×4 (08:46→21:20)
[2018-12-29] MEDS: *HR* Promethazine 25 MG/ML VIAL IVP PRN ×2 (09:17→20:37)
--- NOTE | 2018-12-29 09:48 | Internal Med Progress Note ---
Hospitalist Progress Note - Encounter Date of Encounter: 12/29/18 Time of Encounter: 09:46 - Subjective Interval History: Pt seen and examined in the room. He has severe headache and neck pain currently. Still reported lingering chest pain but has been steady and improving. Also reported stomach upset, nausea, and vomiting. Overnight he has no fever, chills, or night sweats. - Exam Vitals: Temp Pulse Resp BP Pulse Ox 98.0 F 71 16 142/82 96 12/29/18 07:06 12/29/18 07:06 12/29/18 07:06 12/29/18 07:06 12/29/18 07:06 Exam: Gen: Alert, awake, Oriented to time,place and person Chest: Diminished breath sounds B/L, No wheezing, No crackles, No rales Heart: S1S2+ RRR No murmurs Abd: Soft, NT, BS +, No organomegaly Ext: No edema, pulses are palpable, No calf tenderness Neuro : No acute focal neuro deficits noticed Skin: No rash. - Assessment and Plan (1) Chest pain Current Visit: Yes Status: Acute Assessment and Plan: Serial trop x 3 negative EKG - did not show any acute ischemic changes Echocardiogram unremarkable. His stress test came back as negative for ischemia / infarction.. No perfusion defects noticed Card recommend to inc his Metoprolol. Unable to start him on Imdur due to headaches. (2) Headache Current Visit: Yes Status: Acute Assessment and Plan: Worsened with nitroglycerin and imdur. Imdur dc'ed. Tylenol for pain (3) Prostate cancer Current Visit: No Status: Chronic Assessment and Plan: Patient not undergoing treatment. Management outpatient with oncology (4) Diabetes Current Visit: Yes Status: Acute Assessment and Plan: ADA diet on ISS (5) HLD (hyperlipidemia) Current Visit: Yes Status: Acute Assessment and Plan: Reviewed FLP -- LDL @ 102 Will start him on low dose Lipitor (6) DVT prophylaxis Current Visit: Yes Status: Acute Assessment and Plan: Subcutaneous heparin - Time Spent with Patient Total time spent is greater than 50% in coordination of care (as documented) at patient's floor/unit and/or counseling patient: Greater than 35 minutes Plan of Care Discussed with: patient Internal Medicine: Result - Labs CBC & Chem 7: 12/28/18 06:28 12/28/18 06:28 - ABG Interpretation ABG results: PT/INR, D-dimer PT 11.0 Seconds (9.4-12.1) 12/27/18 16:46 - Impressions Impressions Echocardiogram 12/28/18 21:12 Impressions: LVEF 65%. Mild concentric left ventricular hypertrophy. Mild left ventricular diastolic dysfunction. Normal right ventricular structure and function. Moderately dilated left atrium. Mild tricuspid regurgitation. Mild pulmonary hypertension. Left Ventricular Wall Motion: Rest Echo Findings All wall segments showed normal motion. Findings: Study Quality * Technically adequate exam. ECG Findings * Sinus rhythm with BBB. Left Ventricle * LVEF 65%. * Normal LV chamber size. * Mild concentric left ventricular hypertrophy. * Mild left ventricular diastolic dysfunction. Right Ventricle * Normal right ventricular structure and function. Left Atrium * Moderately dilated left atrium. Right Atrium * Normal right atrial size. Aortic Valve * Aortic valve not well visualized. * No aortic regurgitation. * No aortic stenosis. Mitral Valve * Normal mitral valve structure. * No mitral regurgitation. * No mitral stenosis. Tricuspid Valve * Mild tricuspid regurgitation. * Borderline pulmonary hypertension. * No tricuspid stenosis. * Normal tricuspid valve structure. * Mild pulmonary hypertension. * Estimated RVSP is 44 mmHg. * Estimated RA pressure is 10 mmHg. Pulmonic Valve * Pulmonic valve not well visualized. Aorta * Normally sized aortic root. Pericardium * The pericardium appears normal. IVC * The IVC is dilated. Pulmonary Artery * Pulmonary artery not well visualized. Consult Discharge Plan - Plan Referrals: Carlos Lauren MD [Primary Care Provider] - (Appt has been requested. ) (1) Chest pain Qualifiers: Chest pain type: unspecified Qualified Code(s): R07.9 - Chest pain, unspecified (2) Headache Qualifiers: Headache type: unspecified Headache chronicity pattern: unspecified pattern Intractability: not intractable Qualified Code(s): R51 - Headache (4) Diabetes Qualifiers: Diabetes mellitus type: type 2 Diabetes mellitus termite technician insulin use: without senior living use Diabetes mellitus complication status: with hyperglycemia Qualified Code(s): E11.65 - Type 2 diabetes mellitus with hyperglycemia (5) HLD (hyperlipidemia) Qualifiers: Hyperlipidemia type: unspecified Qualified Code(s): E78.5 - Hyperlipidemia, unspecified
[2018-12-29] MEDS: Aspirin 81 MG TAB.CHEW PO SCH (11:05)
[2018-12-29] MEDS: traMADol 50 MG TABLET PO PRN ×2 (11:12→17:44)
[2018-12-29] MEDS: Isosorbide MONOnitrate (24 HR) 30 MG TAB.ER.24H PO SCH (11:16)
--- NOTE | 2018-12-29 11:55 | Event Note ---
Date of Encounter: 12/29/18 Time of Encounter: 11:54 - Cardiology Event Note Pt continues to have intermittent chest pain despite increase in BB and nitrates. Discussed with Dr. Belle. Recommend [facility] Monday. R/B/A discussed and pt agrees to proceed. Will follow peripherally over the weekend. Pt reports he started having nausea, vomiting and diarrhea yesterday afternoon that is continuing. Will re-evaulate tomorrow to make sure he is stable for [facility] Monday.
[2018-12-29] MEDS ORDERED: *HR* HYDROcodone/Acet 5/325 mg TABLET PO ONE (23:35)
[2018-12-30 03:11] LABS: White Blood Count 2.7 K/mcL (4.3-11.1)
[2018-12-30 03:12] LABS: Basophils % 0.4 %; Eosinophils # 0.1 K/mcL (0.0-0.6); Eosinophils % 4.1 %; Hematocrit 38.3 % (37.5-50.1); Hemoglobin 12.8 g/dL (12.9-16.9); Immature Granulocytes % 0.4 % (0-4); Lymphocytes # 0.8 K/mcL (0.6-4.6); Lymphocytes % 29.2 %; Mean Corpuscular HGB Conc 33.4 g/dL (31.6-35.5); Mean Corpuscular Hemoglobin 31.3 pg (28.0-33.3); Mean Corpuscular Volume 93.6 fL (83.0-100.0); Mean Platelet Volume 9.7 fL (9.4-12.4); Monocytes # 0.3 K/mcL (0.0-1.3); Monocytes % 11.8 %; Neutrophils # 1.5 K/mcL (1.6-8.9); Platelet Count 214 K/mcL (140-400); Red Blood Count 4.09 M/mcL (4.19-5.50); Red Cell Distribution Width 12.8 % (11.5-14.5); Segmented Neutrophils % 54.1 %
[2018-12-30 03:40] LABS: BUN/Creatinine Ratio 16 (6-26); Blood Urea Nitrogen 12 mg/dL (8-23); Carbon Dioxide 26 mEq/L (23-29); Chloride 102 mEq/L (98-107); Glucose 134 mg/dL (70-105); Magnesium 1.9 mg/dL (1.6-2.6); Osmolality,Calculated 286 (280-300); Potassium 4.2 mEq/L (3.5-5.1); Sodium 137 mEq/L (136-145); eGFR For African Americans > 60 (> 60); eGFR For Non-African Americans > 60 (> 60)
[2018-12-30] MEDS: *HR* Heparin 5,000 UNIT/ML VIAL SQ SCH ×2 (05:52→17:55)
--- NOTE | 2018-12-30 08:53 | Internal Med Progress Note ---
Hospitalist Progress Note - Encounter Date of Encounter: 12/30/18 Time of Encounter: 08:51 - Subjective Interval History: Pt seen and examined in the billy, Reported headache, nausea and vomiting have significantly improved but still have mild symptoms. Intermittent chest pain and pressure is the same as previous but denies sob, palpitation, or syncope. - Exam Vitals: Temp Pulse Resp BP Pulse Ox 97.7 F 63 15 125/76 95 12/30/18 07:24 12/30/18 07:24 12/30/18 07:24 12/30/18 07:24 12/30/18 07:24 Exam: Gen: Alert, awake, Oriented to time,place and person Chest: Diminished breath sounds B/L, No wheezing, No crackles, No rales Heart: S1S2+ RRR No murmurs Abd: Soft, NT, BS +, No organomegaly Ext: No edema, pulses are palpable, No calf tenderness Neuro : No acute focal neuro deficits noticed Skin: No rash. - Assessment and Plan (1) Chest pain Current Visit: Yes Status: Acute Assessment and Plan: Serial trop x 3 negative EKG - did not show any acute ischemic changes Echocardiogram unremarkable. His stress test came back as negative for ischemia / infarction.. No perfusion defects noticed Card recommend to inc his Metoprolol. Unable to start him on Imdur due to headaches. [facility] in am per cardiology. (2) Headache Current Visit: Yes Status: Acute Assessment and Plan: Worsened with nitroglycerin and imdur. Imdur dc'ed. improving. Tylenol for pain (3) Prostate cancer Current Visit: No Status: Chronic Assessment and Plan: Patient not undergoing treatment. Management outpatient with oncology (4) Diabetes Current Visit: No Status: Acute Assessment and Plan: ADA diet on ISS (5) HLD (hyperlipidemia) Current Visit: No Status: Chronic Assessment and Plan: Reviewed FLP -- LDL @ 102 Will start him on low dose Lipitor (6) DVT prophylaxis Current Visit: Yes Status: Acute Assessment and Plan: Subcutaneous heparin - Time Spent with Patient Total time spent is greater than 50% in coordination of care (as documented) at patient's floor/unit and/or counseling patient: Greater than 35 minutes Plan of Care Discussed with: patient Internal Medicine: Result - Labs CBC & Chem 7: 12/30/18 02:47 12/30/18 02:47 Labs: Short CBC 06/16/19 Range/Units 02:47 WBC 2.7 L (4.3-11.1) K/mcL Hgb 12.8 L (12.9-16.9) g/dL Hct 38.3 (37.5-50.1) % Plt Count 214 (140-400) K/mcL Neutrophils # 1.5 L (1.6-8.9) K/mcL BMP 12/30/18 02:47 Sodium 137 Potassium 4.2 Chloride 102 Carbon Dioxide 26 BUN 12 Creatinine 0.75 Glucose 134 H Calcium 9.0 - ABG Interpretation ABG results: PT/INR, D-dimer PT 11.0 Seconds (9.4-12.1) 12/27/18 16:46 Consult Discharge Plan - Plan Referrals: Carlos Lauren MD [Primary Care Provider] - (Appt has been requested. ) (1) Chest pain Qualifiers: Chest pain type: unspecified Qualified Code(s): R07.9 - Chest pain, unspecified (2) Headache Qualifiers: Headache type: unspecified Headache chronicity pattern: unspecified pattern Intractability: not intractable Qualified Code(s): R51 - Headache (4) Diabetes Qualifiers: Diabetes mellitus type: type 2 Diabetes mellitus intermediate insulin use: without intermediate use Diabetes mellitus complication status: with hyperglycemia Qualified Code(s): E11.65 - Type 2 diabetes mellitus with hyperglycemia (5) HLD (hyperlipidemia) Qualifiers: Hyperlipidemia type: unspecified Qualified Code(s): E78.5 - Hyperlipidemia, unspecified
[2018-12-30] MEDS: Aspirin 81 MG TAB.CHEW PO SCH (09:00)
[2018-12-30] MEDS: Insulin LISPRO 300 UNITS/3 ML VIAL SQ SCH ×4 (09:02→20:28)
[2018-12-30] MEDS: traMADol 50 MG TABLET PO PRN ×2 (09:06→17:54)
--- NOTE | 2018-12-30 10:31 | Event Note ---
Date of Encounter: 12/30/18 Time of Encounter: 10:29 - Cardiology Event Note Pt continues to have intermittent chest pain despite increase in BB and nitrates. Discussed with Dr. Belle. Recommend [facility] Monday. Pt had negative stress test, but concern for balanced ischemia given 40% prox left main disease on [facility] in 2011. Reported nausea, vomiting and diarrhea yesterday. Symptoms now resolved. [facility] R/B/A discussed and pt agrees to proceed. NPO after midnight for [facility] tomorrow.
[2018-12-30] MEDS ORDERED: Isosorbide MONOnitrate (24 HR) 30 MG TAB.ER.24H PO SCH (10:45)
[2018-12-30] MEDS: *HR* Promethazine 25 MG/ML VIAL IVP PRN (19:33)
[2018-12-30] MEDS ORDERED: *HR* OxyCODONE Immed Rel 5 MG TABLET PO ONE (20:03)
[2018-12-30] MEDS: Acetaminophen 325 MG TABLET PO PRN (22:32)
[2018-12-31] MEDS: *HR* Heparin 5,000 UNIT/ML VIAL SQ SCH ×2 (04:56→18:53)
[2018-12-31] MEDS ORDERED: *HR* LORazepam 2 MG/ML VIAL IVP ONE (06:42)
[2018-12-31 07:14] LABS: Basophils % 0.4 %; Eosinophils # 0.1 K/mcL (0.0-0.6); Eosinophils % 2.5 %; Hematocrit 40.6 % (37.5-50.1); Hemoglobin 13.5 g/dL (12.9-16.9); Immature Granulocytes % 0.4 % (0-4); Lymphocytes # 0.7 K/mcL (0.6-4.6); Lymphocytes % 15.5 %; Mean Corpuscular HGB Conc 33.3 g/dL (31.6-35.5); Mean Corpuscular Hemoglobin 30.8 pg (28.0-33.3); Mean Corpuscular Volume 92.5 fL (83.0-100.0); Mean Platelet Volume 9.7 fL (9.4-12.4); Monocytes # 0.4 K/mcL (0.0-1.3); Monocytes % 8.7 %; Neutrophils # 3.4 K/mcL (1.6-8.9); Platelet Count 230 K/mcL (140-400); Red Blood Count 4.39 M/mcL (4.19-5.50); Red Cell Distribution Width 12.7 % (11.5-14.5); Segmented Neutrophils % 72.5 %; White Blood Count 4.7 K/mcL (4.3-11.1)
[2018-12-31 07:31] LABS: BUN/Creatinine Ratio 18 (6-26); Blood Urea Nitrogen 15 mg/dL (8-23); Calcium 9.3 mg/dL (8.6-10.3); Carbon Dioxide 24 mEq/L (23-29); Chloride 101 mEq/L (98-107); Glucose 202 mg/dL (70-105); Osmolality,Calculated 291 (280-300); Potassium 3.8 mEq/L (3.5-5.1); Sodium 137 mEq/L (136-145); eGFR For African Americans > 60 (> 60); eGFR For Non-African Americans > 60 (> 60)
[2018-12-31] MEDS: Insulin LISPRO 300 UNITS/3 ML VIAL SQ SCH ×4 (09:25→21:18)
[2018-12-31] MEDS: Aspirin 81 MG TAB.CHEW PO SCH (09:26)
[2018-12-31] MEDS ORDERED: *HR* Heparin 10,000 UNIT/10 ML VIAL ONE (09:52)
[2018-12-31] MEDS ORDERED: 0.9 % Sodium Chloride 1,000 ML ONE (09:52)
[2018-12-31] MEDS ORDERED: ISOVUE-370 200 ML INFUS..BTL ONE (09:52)
[2018-12-31] MEDS ORDERED: Nitroglycerin 1,000 MCG/10 ML VIAL IV ONE (09:52)
[2018-12-31] MEDS ORDERED: Heparin 1,000 UNITS/500 mL 500 ML ONE (09:52)
[2018-12-31] MEDS ORDERED: *HR* Midazolam HCl 2 MG/2 ML VIAL ONE (10:05)
[2018-12-31] MEDS ORDERED: *HR* FentaNYL (PF) 100 MCG/2 ML VIAL ONE (10:05)
--- NOTE | 2018-12-31 10:51 | Invasive Diagnostic Lab Proc ---
Name: Pepito Burt Date of Study: 12/31/2018 Date: 1950 Ht: 73.0in Medical Record#: [id number] Age: 68 Wt: 249.56lb Gender: Male BSA: 2.36 Order #: [id number] BMI: 32.93 Physicians Procedure Physician: Kaylie Cr MD Referring MD: Referring MD: Staff Name Position Time In Che Hauser RN Monitor 10:07 AM Estee Daniels RT (R) Scrub 10:07 AM Sharda Sykes RT (R) Scrub 10:07 AM Raghu Mosher RN Transport Technician 10:11 AM Alisa Meeks RN Transport Technician Indications Indication Unstable Angina Procedures Performed Procedure L HRT ARTERY/VENTRICLE ANGIO Pre-Procedure Checklist Informed consent is complete signed and on chart. H&P is on chart. ID band is on and ID verified with patient. Patient NPO for procedure The procedure was described for the patient and questions were answered. Blood Pressure: 120/78 ECG is on chart. Plan of Care Patient will tolerate the procedure without complications. Adequate level of comfort will be maintained. Hemodynamics will remain stable Patient will recover from procedure without complications. Respiratory function will be maintained. Cardiac rhythm will remain stable. Patient temperature will be maintained. Patient and/or family have verbalized understanding of the procedure. Patient Education Chief Complaint/Reason for Test: Cardiac Cath Developmental Category: Geriatric (65+ years) Developmentally Appropriate for Age: Yes Learning Barriers: None Education Needs: Procedure Education Method: Verbal Information Taught: Cardiac Cath Educational Evaluation: Able to repeat information Intravenous Access Time IV Size Location DC'd Fluid/Drip Rate Units RN 18g 1 07/20" Patent On Arrival Rt Antecubital 0.9NaCl 50 ml/hr Allergies isosorbide Vital Signs Time BP (mmHg) HR (bpm) O2 Sat. RR (bpm) LOC 120 / 78 108 96 % 16 5 = Fully awake and oriented or at pre-proc level 10:12 AM / % 5 = Fully awake and oriented or at pre-proc level 10:06 AM 143 / 90 81 98 % 8 10:11 AM 141 / 87 78 99 % 11 10:16 AM 122 / 75 77 98 % 13 10:21 AM 131 / 79 75 99 % 15 10:26 AM 125 / 71 77 98 % 17 10:13 AM / % 5 = Fully awake and oriented or at pre-proc level 10:18 AM / % 5 = Fully awake and oriented or at pre-proc level 10:23 AM / % 5 = Fully awake and oriented or at pre-proc level Procedural Medications Time Medication Dose Units Method Given By 10:11 AM Oxygen 2 L/min nasal cannula Raghu Mosher RN 10:12 AM Fentanyl 50 mcg Intravenous Raghu Mosher RN 10:12 AM Versed 1 mg Intravenous Raghu Mosher RN 10:17 AM Lidocaine 2% 19 ml Subcutaneous Kaylie Cr MD 10:31 AM Ancef 1 mg Intravenous Raghu Mosher RN Kingsley Score Preprocedure Postprocedure Activity 2- Moves 4 extremities sustained head lift Activity Circulation 2- SBP +/= 20 points of pre-anesthetic level Circulation Consciousness 2- Awake and alert oriented x 3 Consciousness O2 Saturation 2- Able to maintain O2 satruation of 92% on room air O2 Saturation Respiratory 2- Able to deep breathe and cough well Respiratory Total Score 10 Total Score Contrast Agent: Isovue Diagnostic Contrast: 75 ml Total Contrast: 75 ml Fluoro Dose: 24 mGy Procedure Log Time Note Enter By 10:05 AM CathStat 10:05 AM Vitals capture started with the following parameters, Patient=Adult, Interval=5 min, Initial Kftudcgz=657 mmHg, Deflation Rate=5 mmHg, Cuff placed on Left Arm 10:05 AM Pt arrived to electrical laboratory technician 2 at 10:05 gdeck 10:06 AM Patient charges- Angio tray pack, Navilyst 3mm J, Pulse Oximetry and ACIST tubing and transducer gdeck 10:06 AM HR=81 bpm, DNZQ=449/90 mmhg, SpO2=98 %, Resp=8 B/min 10:06 AM Case Delayed No gdeck 10:06 AM Physician arrived 10:06 gdeck 10:06 AM Mike and jj completed gdeck 10:06 AM Sign in performed according to hospital policy. Informed consent was obtained. gdeck 10:07 AM Case Start 10:07 AM Che Hauser RN Position: Monitor Time in: 10: gdeck 10:07 AM Estee Daniels RT (R) Position: Scrub Time in: 10: gdeck 10:07 AM Sharda Sykes RT (R) Position: Scrub Time in: 10: gdeck 10:07 AM Procedure start 10:07 gdeck 10:11 AM Hair removed from procedure site in holding area using clippers. Bilateral groin prepped with Chloraprep by Alisa Meeks RN, then patient was draped. Skin intact. gdeck 10:11 AM HR=78 bpm, JJAF=184/87 mmhg, SpO2=99.0 %, Resp=11 B/min 10:11 AM Raghu Mosher RN Position: Transport Technician Time in: 10: gdeck 10: AM Time: 10: Oxygen on at 2 L/min per nasal cannula by Raghu Mosher RN gdeck 10:12 AM Time: 10:12 Fentanyl 50 mcg Intravenous Given by Raghu Mosher RN gdeck 10:12 AM Time: 10:12 Versed 1 mg Intravenous Given by Raghu Mosher RN gdeck 10:12 AM Time: 10:12 Patient comfortable and pain free: Yes gdeck 10:13 AM Time: 10:12LOC: 5 = Fully awake and oriented or at pre-proc level gdeck 10:13 AM Clinical Presentation: unstable angina gdeck 10:16 AM HR=77 bpm, VYXG=026/75 mmhg, SpO2=98 %, Resp=13 B/min 10:16 AM Time out was performed according to hospital policy. Conscious sedation and anesthesia was achieved (see medication log with in this report above) gdeck 10:17 AM Time: 10:17 19 ml Lidocaine 2% to right groin Subcutaneous Given by Kaylie Cr MD gdeck 10:17 AM Micro-Introducer Kit utilized for sheath placement gdeck 10:17 AM Access obtained by percutaneous puncture. 5Fr 10cm Terumo [place] sheath placed in right Femoral artery. [id number] gdeck 10:18 AM Time: 10:13LOC: 5 = Fully awake and oriented or at pre-proc level gdeck 10:18 AM Time: 10:12 Patient comfortable and pain free: Yes gdeck 10:18 AM 5Fr FR 4 catheter inserted over the wire DN gdeck 10:19 AM RCA angiography performed in multiple views. gdeck 10:19 AM Recorded Pressure: Ao, HR=75, Condition=Condition 1 (Aorta) Ao 116/90/104 10:20 AM Catheter removed gdeck 10:20 AM 5Fr FL 4 catheter inserted over the wire DN gdeck 10:21 AM HR=75 bpm, AZJH=951/79 mmhg, SpO2=99 %, Resp=15 B/min 10:21 AM LCA angiography performed in multiple views. gdeck 10:22 AM Lesion found in Mid RCA. Pre Stenosis: 50 Pre LUIS FELIPE Flow: gdeck 10:22 AM Lesion found in Right PDA. Pre Stenosis: 40 Pre LUIS FELIPE Flow: gdeck 10:23 AM Recorded Pressure: Ao, HR=76, Condition=Condition 1 (Aorta) Ao 118/91/105 10:23 AM Time: 10:18 Patient comfortable and pain free: Yes gdeck 10:23 AM Time: 10:18LOC: 5 = Fully awake and oriented or at pre-proc level gdeck 10:24 AM Catheter removed gdeck 10:25 AM Alisa Meeks RN Position: Transport Technician Time in: 1025 gdeck 10:25 AM 5Fr Pigtail catheter inserted over the wire [facility] gdeck 10:26 AM Catheter crossed the aortic valve and was selectively placed in the left ventricle. Pressures recorded on pullback for left heart catheterization. gdeck 10:26 AM HR=77 bpm, HOZO=469/71 mmhg, SpO2=98 %, Resp=17 B/min 10:26 AM Recorded Pressure: LV, HR=78, Condition=Condition 1 (Left Ventricle) LV 114/19/25 10:27 AM Recorded Pressure: LV, Ao, HR=76, Condition=Condition 1 (Left Ventricle) LV 116/17/19, (Aorta) Ao 115/27/84 10:27 AM Catheter removed gdeck 10:28 AM Procedure completed at 10:28 12/31/2018 gdeck 10:28 AM Time: 10:LOC: 5 = Fully awake and oriented or at pre-proc level gdeck 10:29 AM Sign out completed: Radiation Dose 245.55 mGy, 24.4 Gy/cm2 Fluoro Time: 2.2 Isovue 370 - 200ml contrast 75 ml given by Kaylie Cr MD. Complications: None. The patient was discharged out of the cathead worker in stable condition. Sedation minutes 16. Cardiac Rehab Consult needed: No. Confirmed administered medications: Yes gdeck 10:30 AM Isovue 370 - 200ml,1 Bottle(s) used. gdeck 10:30 AM Arterial sheath pulled, Angio-seal closure device used and was Successful [id number] S/N. gdeck 10:30 AM Post ECG NSR gdeck 10:30 AM Post Blood Pressure 125/71 gdeck 10:30 AM 10:30 Post Pulses Bilateral DP & PT 1+ gdeck 10:31 AM Information taught Cardiac Cath gdeck 10:31 AM Education needs Procedure and Plan of Care gdeck 10:31 AM Learning barriers :None gdeck 10:31 AM Education Methods Verbal gdeck 10:31 AM Education evaluation Able to repeat information gdeck 10:31 AM Site status No bleeding/hematoma - Rt Groin as reported by sEtee Daniels RT (R) at 10:31 gdeck 10:31 AM Opsite applied gdeck 10:31 AM Time: 10:31 Ancef 1 mg Intravenous Given by Raghu Mosher RN gdeck 10:34 AM Patient out of room: 10:34 gdeck 10:34 AM Complications: None gdeck 10:37 AM Report given to Katlin AGUIRRE Pt taken to 3B Room #38. 10:37 gdeck 10:38 AM Lesion found in Proximal LMCA. Pre Stenosis: 40 Pre LUIS FELIPE Flow: gdeck 10:38 AM Lesion found in . Pre Stenosis: Pre LUIS FELIPE Flow: gdeck 10:38 AM Lesion found in Proximal Circumflex. Pre Stenosis: 25 Pre LUIS FELIPE Flow: gdeck 10:38 AM Lesion found in Distal Circumflex. Pre Stenosis: 50 Pre LUIS FELIPE Flow: gdeck 10:39 AM Right Coronary, Right Posterior Descending Arteries with Right Posterolateral and Acute Marginal branches with 50 % stenosis. If graft is supplying this area, 0 % stenosis gdeck 10:39 AM Left Main Coronary Artery with 40% stenosis gdeck 10:39 AM Circumflex, Obtuse Marginal, Left Posterior Descending, and Left Posterolateral Coronary Arteries with 50 % stenosis. If graft is supplying this area, 0 % stenosis gdeck 10:39 AM Coronary Dominance: right gdeck Complications Complication None None Hemodynamics Pressures Site Systolic/A Wave Diastolic/V Wave Mean AO 116 90 104 AO 118 91 105 LV 114 19 25 LV 116 17 19 AO 115 27 84 Post Procedure Information Blood Pressure: 125/71 mmHg Rhythm: NSR Post procedural instructions were given Closure Device Time Device Success/Fail 12/31/2018 10:30:00 AM Angio-Seal VIP Site Checks Time Location Status Staff Sheath In? Note 10:31 AM Rt Groin No bleeding/hematoma Estee Daniels RT (R) Pulses Time Site Pre-Procedure Post-Procedure Note Bilateral DP & PT 2+ 10:30:00 AM Bilateral DP & PT 1+ Updated by Che Hauser RN on 12/31/2018 10:43:38 AM Che Hauser RN electronically signed on 12/31/2018 10:44:12 AM with status of Final
[2018-12-31] MEDS ORDERED: *HR* OxyCODONE Immed Rel 5 MG TABLET PO PRN (13:26)
--- NOTE | 2018-12-31 13:26 | Internal Med Progress Note ---
Hospitalist Progress Note - Encounter Date of Encounter: 12/31/18 Time of Encounter: 13:00 - Subjective Interval History: Mr. Burt is a 68 y/o M with known past medical history of hypertension, hyperlipidemia, CAD status post PCI who follows with cardiology Dr. Amor, now he presented to ER plastid complaining about intermittent chest pain since Monday. Patient stated his chest pain located sub sternal and left chest wall region radiating to his left shoulder. His chest pain 6 out of 10 in severity and more like sharp/pressure type Pain. In the ER his initial troponin was negative. EKG did not show any acute ischemic changes. He was admitted in the hospital placed him on quality assurance monitor body. His serial troponin came back as negative. His nuclear stress test came back as negative. However since patient still complained about intermittent chest pain, he did go for LHC this morning which did not show any obstruction. Patient also complaining about headaches and asking for narcotic pain medication along with Phenergan. Patient stated he is chronic narcotic dependent and taking his Oxycodone like skittels at home. He does c.o nausea / vomiting and diarrhea since his hospitalization here. - Exam Vitals: Temp Pulse Resp BP Pulse Ox 97.8 F 67 16 130/84 96 12/31/18 11:05 12/31/18 12:05 12/31/18 12:05 12/31/18 12:05 12/31/18 12:05 Exam: Gen: Alert, awake, Oriented to time,place and person Chest: Diminished breath sounds B/L, No wheezing, No crackles, No rales Heart: S1S2+ RRR No murmurs Abd: Soft, NT, BS +, No organomegaly Ext: No edema, pulses are palpable, No calf tenderness Neuro : No acute focal neuro deficits noticed Skin: No rash. - Assessment and Plan (1) Chest pain Current Visit: Yes Status: Acute Assessment and Plan: Serial trop x 3 negative EKG - did not show any acute ischemic changes Echocardiogram unremarkable. His stress test came back as negative for ischemia / infarction.. No perfusion defects noticed Card recommend to inc his Metoprolol. Unable to start him on Imdur due to headaches. s/p LHC - non obstructive CAD.. Waiting for final report cont ASA, Plavix, Statin, Metoprolol and Lisinopril (2) Headache Current Visit: Yes Status: Acute Assessment and Plan: Worsened with nitroglycerin and imdur. Imdur dc'd Pt is asking for narcotic pain meds resumed home dose of Oxycodone 10mg started on Percocet 5/325 PRN for break through pain (3) Prostate cancer Current Visit: No Status: Chronic Assessment and Plan: Patient not undergoing treatment. Management outpatient with oncology (4) DVT prophylaxis Current Visit: Yes Status: Acute Assessment and Plan: Subcutaneous heparin (5) Diabetes Current Visit: No Status: Acute Assessment and Plan: ADA diet on ISS (6) HLD (hyperlipidemia) Current Visit: No Status: Chronic Assessment and Plan: Reviewed FLP -- LDL @ 102 cont home dose Lipitor (7) Intractable nausea and vomiting Current Visit: Yes Status: Acute Assessment and Plan: Most likely patient is going through narcotic / Opioid withdrawal symptoms cont Zofran and PO Phenergan resumed home dose of Oxycodone (8) Diarrhea Current Visit: Yes Status: Acute Assessment and Plan: could be due to opioid withdrawal symptoms resumed his home dose of Oxycodone also check for C. Diff - Time Spent with Patient Total time spent is greater than 50% in coordination of care (as documented) at patient's floor/unit and/or counseling patient: Internal Medicine: Result - Labs CBC & Chem 7: 12/31/18 06:44 12/31/18 06:44 Labs: Short CBC 12/31/18 Range/Units 06:44 WBC 4.7 D (4.3-11.1) K/mcL Hgb 13.5 (12.9-16.9) g/dL Hct 40.6 (37.5-50.1) % Plt Count 230 (140-400) K/mcL Neutrophils # 3.4 (1.6-8.9) K/mcL BMP 12/31/18 06:44 Sodium 137 Potassium 3.8 Chloride 101 Carbon Dioxide 24 BUN 15 Creatinine 0.83 Glucose 202 H Calcium 9.3 - ABG Interpretation ABG results: PT/INR, D-dimer PT 11.0 Seconds (9.4-12.1) 12/27/18 16:46 Consult Discharge Plan - Plan Referrals: Carlos Lauren MD [Primary Care Provider] - 01/03/19 9:15 am () (1) Chest pain Qualifiers: Chest pain type: unspecified Qualified Code(s): R07.9 - Chest pain, unspecified (2) Headache Qualifiers: Headache type: unspecified Headache chronicity pattern: unspecified pattern Intractability: not intractable Qualified Code(s): R51 - Headache (5) Diabetes Qualifiers: Diabetes mellitus type: type 2 Diabetes mellitus survey associate insulin use: without residential use Diabetes mellitus complication status: with hyperglycemia Qualified Code(s): E11.65 - Type 2 diabetes mellitus with hyperglycemia (6) HLD (hyperlipidemia) Qualifiers: Hyperlipidemia type: unspecified Qualified Code(s): E78.5 - Hyperlipidemia, unspecified (7) Intractable nausea and vomiting Qualifiers: Vomiting type: unspecified Qualified Code(s): R11.2 - Nausea with vomiting, unspecified (8) Diarrhea Qualifiers: Diarrhea type: unspecified type Qualified Code(s): R19.7 - Diarrhea, unspecified
[2018-12-31] MEDS ORDERED: *HR* OxyCODONE/APAP 5/325 TABLET PO PRN (13:27)
--- NOTE | 2018-12-31 14:17 | Event Note ---
Date of Encounter: 12/31/18 Time of Encounter: 14:15 - Cardiology Event Note LHC completed for recurrent chest pain despite medical management. LHC showed moderate two vessel CAD. No intervention needed. Continue medical therapy. Unable to start imdur due to headache. Start ranexa. Out-pt f/u with cardiology in 3-4 weeks will be coordinated.
[2018-12-31] MEDS: Ranolazine 500 MG TAB.ER.12H PO SCH ×2 (16:25→21:18)
[2018-12-31] MEDS: Gabapentin 300 MG CAPSULE PO SCH ×2 (16:25→21:18)
[2018-12-31] MEDS: Venlafaxine XR (24 HR) 75 MG CAP.ER.24H PO SCH (21:18)
[2019-01-01] MEDS: *HR* Heparin 5,000 UNIT/ML VIAL SQ SCH (05:26)
[2019-01-01 07:28] VITALS: BP 128/73
[2019-01-01] MEDS: Venlafaxine XR (24 HR) 75 MG CAP.ER.24H PO SCH (07:55)
[2019-01-01] MEDS: Aspirin 81 MG TAB.CHEW PO SCH (07:55)
[2019-01-01] MEDS: Gabapentin 300 MG CAPSULE PO SCH (07:56)
[2019-01-01] MEDS: Ranolazine 500 MG TAB.ER.12H PO SCH (07:56)
[2019-01-01] MEDS: Insulin LISPRO 300 UNITS/3 ML VIAL SQ SCH (07:57)
--- NOTE | 2019-01-01 10:52 | Discharge Summary ---
- NOTES TO OUTPATIENT PROVIDER Notes to Outpatient Provider: f/u with PCP in one week. f/u with Cardiology in 1-2 weeks. Please start taking Metoprolol 50mg PO BID and Ranexa 500mg PO BID ( new medication initiated during this hospitlaization ) Orders not resulted at time of discharge: Pending orders 12/28/18 07:00 NM ndera perf SPECT multi [NM] Routine Date of Encounter: 01/01/19 Time of Encounter: 10:20 - Discharge Diagnosis (1) Chest pain Priority: Primary Status: Acute Qualifiers: Chest pain type: unspecified Qualified Code(s): R07.9 - Chest pain, unspecified (2) Headache Priority: Primary Status: Acute Qualifiers: Headache type: unspecified Headache chronicity pattern: unspecified pattern Intractability: not intractable Qualified Code(s): R51 - Headache (3) Intractable nausea and vomiting Priority: Secondary Status: Acute Qualifiers: Vomiting type: unspecified Qualified Code(s): R11.2 - Nausea with vomiting, unspecified (4) Prostate cancer Priority: Secondary Status: Chronic (5) Diabetes Priority: Secondary Status: Acute Qualifiers: Diabetes mellitus type: type 2 Diabetes mellitus 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 Burt is a 68 y/o M with known past medical history of hypertension, hyperlipidemia, CAD status post PCI who follows with cardiology Dr. Amor, now he presented to ER plastid complaining about intermittent chest pain since Monday. Patient stated his chest pain located sub sternal and left chest wall region radiating to his left shoulder. His chest pain 6 out of 10 in severity and more like sharp/pressure type Pain. In the ER his initial troponin was negative. EKG did not show any acute ischemic changes. He was admitted in the hospital placed him on nurse monitoring. His serial troponin came back as negative. His nuclear stress test came back as negative. However since patient still complained about intermittent chest pain, he did go for LHC y/d which showed moderate 2 vessel CAD. So conntinued ASA, Plavix, Inc Metoprolol 50mg BID, Lisinopril and added Ranexa. Unable to start him on Imdur due to his headaches. Patient also complained about intractable N/V with diarrhea. Patient stated he is chronic narcotic dependent and taking his Oxycodone like skittels at home. He did not recieved his narcotic for 2-3 days here, seems to be he went into Opioid withdrawal symptoms. After resuming his home dose Narcotic his symptoms resolved now. So will d/c him home in stable condition today - Time Spent with Patient Total time spent providing and/or coordinating discharge services: - Discharge Medications Prescriptions: New Metoprolol [Lopressor] 50 mg PO BID #60 tablet Ranolazine [Ranexa] 500 mg PO BID #60 tab.er.12h Continued Cyclobenzaprine HCl 10 mg PO DAILY PRN PRN Reason: Muscle Spasm Pioglitazone [Actos] 45 mg PO DAILY Clopidogrel Bisulfate [Plavix] 75 mg PO DAILY Tamsulosin HCl [Flomax] 0.4 mg PO DAILY Gabapentin [Neurontin] 300 mg PO TID Lisinopril [Zestril] 10 mg PO DAILY OxyCODONE Immed Rel [Roxicodone 10 MG] 10 mg PO TID PRN PRN Reason: Pain Vitamin E (Dl,Tocopheryl Acet) [Vitamin E] 400 unit PO BID #60 cap Aspirin [Adult Aspirin Regimen] 81 mg PO DAILY Atorvastatin [Lipitor] 40 mg PO DAILY Multivitamin [One Daily Multivitamin] 1 tab PO DAILY Venlafaxine HCl [Venlafaxine HCl ER] 75 mg PO BID Zolpidem [Ambien] 10 mg PO HS PRN PRN Reason: Sleep Discontinued Metoprolol [Lopressor] 25 mg PO BID Home Medications: Clopidogrel Bisulfate [Plavix] 75 mg PO DAILY 03/13/17 [History] Cyclobenzaprine HCl 10 mg PO DAILY PRN 03/13/17 [History] Gabapentin [Neurontin] 300 mg PO TID 03/13/17 [History] Lisinopril [Zestril] 10 mg PO DAILY 03/13/17 [History] OxyCODONE Immed Rel [Roxicodone 10 MG] 10 mg PO TID PRN 03/13/17 [History] Pioglitazone [Actos] 45 mg PO DAILY 03/13/17 [History] Tamsulosin HCl [Flomax] 0.4 mg PO DAILY 03/13/17 [History] Vitamin E (Dl,Tocopheryl Acet) [Vitamin E] 400 unit PO BID #60 cap 03/13/17 [Rx] Aspirin [Adult Aspirin Regimen] 81 mg PO DAILY 12/28/18 [History] Atorvastatin [Lipitor] 40 mg PO DAILY 12/28/18 [History] Multivitamin [One Daily Multivitamin] 1 tab PO DAILY 12/28/18 [History] Venlafaxine HCl [Venlafaxine HCl ER] 75 mg PO BID 12/28/18 [History] Zolpidem [Ambien] 10 mg PO HS PRN 12/28/18 [History] Metoprolol [Lopressor] 50 mg PO BID #60 tablet 01/01/19 [Rx] Ranolazine [Ranexa] 500 mg PO BID #60 tab.er.12h 01/01/19 [Rx] Allergies/Adverse Reactions: Allergy/AdvReac Type Severity Reaction Status Date / Time isosorbide [From Imdur] AdvReac Headache Verified 12/30/18 20:08 Date of admission: 12/29/18 18:12 Primary care physician: Carlos Lauren MD Consults: 12/28/18 11:17 Consult to Cardiology [CONS] Routine Comment: Consulting Provider: Cardiology [facility] Reason for Consult: Chest pain Time Notified: 11:18 Call Completed: Yes - Constitutional Vitals: Temp Pulse Resp BP Pulse Ox 97.9 F 62 16 128/73 95 01/01/19 07:27 01/01/19 07:27 01/01/19 07:27 01/01/19 07:27 01/01/19 07:27 General appearance: Present: cooperative, A&O X 3, pleasant, no acute distress, answers questions appropriately Exam: Gen: Alert, awake, Oriented to time,place and person Chest: Diminished breath sounds B/L, No wheezing, No crackles, No rales Heart: S1S2+ RRR No murmurs Abd: Soft, NT, BS +, No organomegaly Ext: No edema, pulses are palpable, No calf tenderness Neuro : No acute focal neuro deficits noticed Skin: No rash. - Head Head exam: Present: atraumatic, normal inspection - Patient Status Disposition: Home, Self-Care Condition: Good Overall status at discharge: patient is back to baseline - Discharge Instructions Follow Up With: Carlos Lauren MD [Primary Care Provider] - 01/03/19 9:15 am () Kaylie Cr [Partnered Physician] - - Diet and Activity Activity: increase activity as tolerated Diet: low salt diet
--- NOTE | 2019-01-01 16:26 | Electrocardiograph Report ---
[address] [address] Test Date: 2018-12-27 Pat Name: Pepito Burt Department: 104 Room: 3B Gender: M Guest Service Aide: Msc : 1950 Requested By: Dariel Millard Order Number: [id number] Reading MD: Estee Rocha Measurements Intervals [place] Rate: 95 P: 30 LA: 177 QRS: -59 QRSD: 133 T: 23 QT: 354 QTc: 407 Interpretive Statements SINUS RHYTHM RIGHT BUNDLE BRANCH BLOCK LEFT ANTERIOR FASCICULAR BLOCK Electronically Signed On 01-01-2019 16:25:06 EDT by Estee Rocha
== END 2019-01-01 11:50 | disposition home or self-care (01) | DRG 287 ==
LOC: EMEROOARM 16:08 → 3BNU 16:08 → SUATTDRO 12-29 18:12
PROVIDERS: ADMIT Family Medicine; ATTEND Family Medicine